=== PATIENT | male | born 1990 | race Hispanic/Latino ===

== ENCOUNTER 2018-11-09 14:53 | Inpatient (IN) | payer SELFPAY ==
[~2018-11-09] VITALS: Ht 167.6 cm; Wt 94.8 kg
[2018-11-09] MEDS ORDERED: FAMOTIDINE/PF 20 MG/2 ML VIAL IV ONE (15:24)
[2018-11-09] MEDS ORDERED: HYOSCYAMINE SULFATE 0.125 MG TAB.SUBL SL ONE (15:24)
[2018-11-09] MEDS ORDERED: ONDANSETRON HCL 4 MG/2 ML VIAL ONE (15:24)
[2018-11-09 15:33] LABS: APPEARANCE,URINE Clear (CLEAR); BILIRUBIN,URINE Negative (NEGATIVE); COLOR,URINE Yellow (YELLOW); GLUCOSE, URINE (UA) Negative (NEGATIVE); KETONES,URINE Negative (NEGATIVE); LEUKOCYTE ESTERASE ,URINE Negative (NEGATIVE); NITRATE,URINE Negative (NEGATIVE); OCCULT BLOOD,URINE Negative (NEGATIVE); PH,URINE 6.5 (5.0-8.0); PROTEIN,URINE Negative (NEGATIVE)
[2018-11-09 15:40] LABS: CREATININE 1.1 mg/dL (0.5-1.5); POTASSIUM 4.1 mmol/L (3.5-5.1)
[2018-11-09 15:45] LABS: ALBUMIN 4.4 g/dL (3.5-5.0); BILIRUBIN,DIRECT 0.1 mg/dL (0.0-0.3); BILIRUBIN,TOTAL 0.8 mg/dL (0.2-1.0); TOTAL PROTEIN, SERUM 8.1 g/dL (6.0-8.3)
[2018-11-09 15:58] LABS: AMPHET/METH SCREEN,URINE NEGATIVE (NEGATIVE); BARBITURATE SCREEN, URINE NEGATIVE (NEGATIVE); BENZODIAZEPINES SCREEN,URINE NEGATIVE (NEGATIVE); CANNABINOID SCREEN,URINE NEGATIVE (NEGATIVE); COCAINE SCREEN,URINE NEGATIVE (NEGATIVE); OPIATE SCREEN,URINE NEGATIVE (NEGATIVE); PHENCYCLIDINE SCREEN,URINE NEGATIVE (NEGATIVE)
[2018-11-09] MEDS ORDERED: SODIUM CHLORIDE 0.9% 1000ML 2,000 ML IV ONE (16:25)
[2018-11-09] MEDS ORDERED: MORPHINE SULFATE 4 MG/1ML SYG ONE ×2 (16:29→19:45)
[2018-11-09 16:38] LABS: BASOPHILS % (AUTO) 0.3 % (0.0-5.0); EOSINOPHILS % (AUTO) 0.6 % (0.0-8.0); HEMATOCRIT 47.3 % (42-54); LYMPHOCYTES % (AUTO) 10.2 % (21.0-51.0); MEAN CORPUSCULAR HEMOGLOBIN 30.8 pg (27.0-33.0); MEAN CORPUSCULAR HGB CONC 34.2 g/dL (32.0-36.0); MEAN CORPUSCULAR VOLUME 90.2 fL (79-99); MONOCYTES % (AUTO) 3.8 % (3.0-13.0); NEUTROPHILS % (AUTO) 85.1 % (40.0-77.0); NUCLEATED RED BLOOD CELLS 0.1 % (0.0-0.19); PLATELET COUNT (AUTO) 229 K/uL (130-400); RED BLOOD CELL COUNT(AUTO) 5.24 MIL/uL (4.50-6.20); RED CELL DISTRIBUTION WIDTH 13.1 % (11.0-15.5); WHITE BLOOD COUNT (AUTO) 10.9 K/uL (4.8-10.8)
[2018-11-09] MEDS ORDERED: MORPHINE SULFATE 2 MG/ML 1ML SYG IV PRN (18:45)
[2018-11-09] MEDS ORDERED: DIAZEPAM 5 MG/ML 2 ML SYG IV PRN (18:45)
[2018-11-09] MEDS ORDERED: MORPHINE SULFATE 4 MG/1ML SYG IV PRN (18:45)
[2018-11-09] MEDS: SODIUM CHLORIDE 0.9% 1000ML 1,000 ML IV SCH (18:45)
[2018-11-09] MEDS: PROMETHAZINE HCL 25 MG/ML 1ML AMPULE IVPB SCH (18:45)
[2018-11-09] MEDS ORDERED: ACETAMINOPHEN 325 MG TAB PO PRN ×2 (18:45)
[2018-11-09] MEDS ORDERED: SODIUM CHLORIDE 0.9% 1000ML 1,000 ML IV ONE (19:46)
[2018-11-09 21:35] VITALS: BP 152/97
--- NOTE | 2018-11-09 22:00 | NUR ---
ADMIT PT ADMITTED TO ROOM 401, AAOX3. DENIES ANY ABDOMINAL PAINS AT THIS TIME. ADMISSION CARED ONE. ADMISSION DATA BASE COMPLETED. IVF FROM ER OF [facility] CONTINUED REGULATED AT 100CC/HR. INSTRUCTED TO BE NPO. ORIENTED TO ROOM AND UNIT. RE-ITERATED FALL PRECAUTIONS. IN FOR MORE CARE AND MANAGEMENT. Addendum: 11/10/18 at 0028 by DIXIE MICHELLE RN RN Amended: Links added.
[2018-11-09] MEDS: ENOXAPARIN SODIUM 30 MG/0.3 ML SQ SCH (22:25)
[2018-11-09] MEDS: FAMOTIDINE/PF 20 MG/2 ML VIAL IV SCH (22:25)
[2018-11-09] MEDS ORDERED: PHARMACY COMMUNICATION MISC PRN (23:00)
[2018-11-09] MEDS ORDERED: ONDANSETRON HCL 4 MG/2 ML VIAL IV PRN (23:00)
[2018-11-09] MEDS ORDERED: CHLORDIAZEPOXIDE HCL 25 MG CAP PO PRN ×2 (23:00)
[2018-11-09] MEDS ORDERED: LORAZEPAM 2 MG/ML 1 ML VIAL IVP PRN ×2 (23:00)
[2018-11-09 23:37] LABS: ALCOHOL, BLOOD < 3 mg/dL (0-10); PHOSPHORUS 3.3 mg/dL (2.5-4.9)
[2018-11-09 23:47] VITALS: BP 116/71
[2018-11-10] MEDS ORDERED: RANI-662 PO (01:43)
--- NOTE | 2018-11-10 02:00 | NUR ---
ROUNDS PT RESTING WELL, FAIRLY ASLEEP WITH RESPIRATIONS EVEN AND UNLABORED. NO NOTED DISTRESS. KEPT UNDISTURBED FOR NOW.CALL LIGHT WITHIN REACH. WILL MONITOR PT.
[2018-11-10] MEDS: PROMETHAZINE HCL 25 MG/ML 1ML AMPULE IVPB SCH (02:49)
[2018-11-10 03:37] VITALS: BP 128/62
[2018-11-10] MEDS: SODIUM CHLORIDE 0.9% 1000ML 1,000 ML IV SCH (05:03)
--- NOTE | 2018-11-10 05:03 | NUR ---
ROUNDS PT RESTING WELL, NO CONCERNS VERBALIZED. NO DISTRESS NOTED. NEW IV BAG HUNG. KEPT COMFORTABLE IN BED. KEPT NPO. FOR MORE CARE.
[2018-11-10 07:54] VITALS: BP 113/68
[2018-11-10] MEDS ORDERED: PROMETHAZINE HCL 25 MG/ML 1ML AMPULE IVPB PRN (08:45)
[2018-11-10] MEDS ORDERED: FOLIC ACID 1 MG TABLET PO SCH (09:00)
[2018-11-10] MEDS ORDERED: MULTIVITAMIN TABLET PO SCH (09:00)
[2018-11-10] MEDS ORDERED: THIAMINE HCL 100 MG, FOLIC ACID 1 MG, M.V.I. IV [ADULT] 10 ML in SODIUM CHLORIDE 0.9% 1... IV SCH (09:00)
[2018-11-10] MEDS ORDERED: THIAMINE HCL 100 MG/ML 2ML VIAL IM SCH (09:00)
[2018-11-10] MEDS: FAMOTIDINE/PF 20 MG/2 ML VIAL IV SCH ×2 (09:10→20:28)
[2018-11-10] MEDS: ENOXAPARIN SODIUM 30 MG/0.3 ML SQ SCH (09:10)
[2018-11-10] MEDS ORDERED: ONDANSETRON HCL 4 MG/2 ML VIAL IVP PRN (10:45)
[2018-11-10 10:52] VITALS: BP 121/70
--- NOTE | 2018-11-10 11:05 | NUR ---
INITIAL MET W PT AND SPOUSE, AAOX3, INDP OF ADLS, NO DME, NOT CURRENTLY EMPLOYED, NOT CURRENTLY WITH A DRIVERS LICENSE, LIVES W SPOUSE WHO WILL PROVIDE TRANSPORT; FORMER PT OF [facility], STATES WAS THERE OVER A YEARS AGO. COUNCESSLLED ETOH CESSATION AND RETURN TO [facility] FOR FOLLWO UP. [employer] [employer] DSICUSSED. CM WILL FOLLOW. Addendum: 11/10/18 at 1655 by PILAR HERRERA RN CM Amended: Links added.
[2018-11-10 11:13] LABS: HEMATOCRIT 41.6 % (42-54); MEAN CORPUSCULAR HGB CONC 34.2 g/dL (32.0-36.0); MEAN CORPUSCULAR VOLUME 90.6 fL (79-99); NUCLEATED RED BLOOD CELLS 0.1 % (0.0-0.19); PLATELET COUNT (AUTO) 189 K/uL (130-400); RED BLOOD CELL COUNT(AUTO) 4.59 MIL/uL (4.50-6.20); RED CELL DISTRIBUTION WIDTH 12.6 % (11.0-15.5); WHITE BLOOD COUNT (AUTO) 6.1 K/uL (4.8-10.8)
[2018-11-10 11:24] LABS: CREATININE 1.1 mg/dL (0.5-1.5); POTASSIUM 4.3 mmol/L (3.5-5.1)
[2018-11-10] MEDS: LACTATED RINGERS 1000ML 1,000 ML IV SCH ×2 (15:52→23:31)
[2018-11-10 16:00] VITALS: BP 112/63
[2018-11-10 19:30] VITALS: BP 108/61
[2018-11-10] MEDS: ATORVASTATIN CALCIUM 20 MG TABLET PO SCH (20:28)
--- NOTE | 2018-11-10 20:30 | NUR ---
MEDS SHIFT ASSESSMENT DONE, PLEASE REFER TO CPOE. DUE MEDS ADMINISTERED, TOLERATED WELL. KEPT RESTED AND COMFORTABLE. ENCOURAGED TO REST AND SLEEP. CALL LIGHT WITHIN REACH. WILL MONITOR PT. Addendum: 11/10/18 at 2359 by DIXIE MICHELLE RN RN Amended: Links added.
--- NOTE | 2018-11-10 23:30 | NUR ---
ROUNDS PT RESTING WELL. NO DISTRESS NOTED. NO CONCERNS VERBALIZED. NEW IV BAG HUNG. PCP IN TO CHECK V/S, STABLE. ENCOURAGED TO SLEEP.
[2018-11-11] VITALS: BP 118/62
--- NOTE | 2018-11-11 02:00 | NUR ---
ROUNDS PT RESTING WELL, FAIRLY ASLEEP WITH RESPIRATIONS EVEN AND UNLABORED. NO NOTED DISTRESS. KEPT UNDISTURBED FOR NOW. WILL CONTINUE TO MONITOR. CALL LIGHT WITHIN REACH.
[2018-11-11 04:00] VITALS: BP 108/68
[2018-11-11 04:35] LABS: MEAN CORPUSCULAR HEMOGLOBIN 30.5 pg (27.0-33.0); MEAN CORPUSCULAR VOLUME 89.5 fL (79-99); PLATELET COUNT (AUTO) 200 K/uL (130-400); RED CELL DISTRIBUTION WIDTH 12.8 % (11.0-15.5); WHITE BLOOD COUNT (AUTO) 6.9 K/uL (4.8-10.8)
[2018-11-11 05:08] LABS: CREATININE 1.1 mg/dL (0.5-1.5); POTASSIUM 3.6 mmol/L (3.5-5.1)
--- NOTE | 2018-11-11 06:00 | NUR ---
ROUNDS PT STILL FAIRLY ASLEEP. NO DISTRESS NOTED. KEPT UNDISTURBED. NEW IV BAG HUNG. FOR MORE CARE.
[2018-11-11] MEDS: LACTATED RINGERS 1000ML 1,000 ML IV SCH ×3 (06:05→19:30)
[2018-11-11 07:40] VITALS: BP 111/59
[2018-11-11] MEDS: ENOXAPARIN SODIUM 30 MG/0.3 ML SQ SCH (08:42)
[2018-11-11] MEDS: FAMOTIDINE/PF 20 MG/2 ML VIAL IV SCH ×2 (08:42→20:16)
[2018-11-11 11:00] VITALS: BP 114/53
[2018-11-11 15:53] VITALS: BP 109/73
[2018-11-11] MEDS: MAGNESIUM 2GM PREMIX 50ML 50 ML IV PRN (16:30)
[2018-11-11 19:30] VITALS: BP 127/67
[2018-11-11] MEDS: ATORVASTATIN CALCIUM 20 MG TABLET PO SCH (20:16)
--- NOTE | 2018-11-11 20:20 | NUR ---
MEDS SHIFT ASSESSMENT DONE, PLEASE REFER TO CHART. DUE MEDS ADMINISTERED, TOLERATED. KEPT RESTED ION BED. KEPT NPO. WILL MONITOR PT. CALL LIGHT WITHIN REACH. Addendum: 11/12/18 at 0031 by DIXIE MICHELLE RN RN Amended: Links added.
[2018-11-12] VITALS (7 sets, daily range): BP systolic 101–138; BP diastolic 60–85
[2018-11-12] MEDS: LACTATED RINGERS 1000ML 1,000 ML IV SCH ×5 (01:00→22:06)
--- NOTE | 2018-11-12 02:00 | NUR ---
ROUNDS PT RESTING WELL, NO CONCERNS VERBALIZED. NO DISTRESS NOTED. KEPT COMFORTABLE IN BED. WILL MONITOR PT.
[2018-11-12 05:39] LABS: HEMATOCRIT 40.3 % (42-54); MEAN CORPUSCULAR HEMOGLOBIN 31.1 pg (27.0-33.0); MEAN CORPUSCULAR HGB CONC 34.7 g/dL (32.0-36.0); MEAN CORPUSCULAR VOLUME 89.7 fL (79-99); NUCLEATED RED BLOOD CELLS 0.1 % (0.0-0.19); PLATELET COUNT (AUTO) 198 K/uL (130-400); RED BLOOD CELL COUNT(AUTO) 4.49 MIL/uL (4.50-6.20); WHITE BLOOD COUNT (AUTO) 5.8 K/uL (4.8-10.8)
[2018-11-12 05:50] LABS: MAGNESIUM 1.7 mg/dL (1.80-2.40); POTASSIUM 3.7 mmol/L (3.5-5.1)
[2018-11-12] MEDS: MAGNESIUM 2GM PREMIX 50ML 50 ML IV PRN (06:03)
[2018-11-12] MEDS: FAMOTIDINE/PF 20 MG/2 ML VIAL IV SCH ×2 (08:15→20:40)
[2018-11-12] MEDS: ENOXAPARIN SODIUM 30 MG/0.3 ML SQ SCH (08:16)
[2018-11-12] MEDS ORDERED: ACETAMINOPHEN 325 MG TAB PO PRN (15:45)
[2018-11-12] MEDS ORDERED: HYDROCODONE/ACETAMINOPHEN 5/325 MG TAB PO PRN (15:45)
[2018-11-12] MEDS: ATORVASTATIN CALCIUM 20 MG TABLET PO SCH (20:41)
[2018-11-13 03:43] VITALS: BP 120/74
[2018-11-13] MEDS: LACTATED RINGERS 1000ML 1,000 ML IV SCH (04:13)
[2018-11-13 06:04] LABS: HEMATOCRIT 40.3 % (42-54); MEAN CORPUSCULAR HEMOGLOBIN 31.3 pg (27.0-33.0); MEAN CORPUSCULAR HGB CONC 35.1 g/dL (32.0-36.0); MEAN CORPUSCULAR VOLUME 89.2 fL (79-99); PLATELET COUNT (AUTO) 209 K/uL (130-400); RED BLOOD CELL COUNT(AUTO) 4.52 MIL/uL (4.50-6.20); RED CELL DISTRIBUTION WIDTH 12.7 % (11.0-15.5); WHITE BLOOD COUNT (AUTO) 5.4 K/uL (4.8-10.8)
[2018-11-13 06:24] LABS: CREATININE 1.1 mg/dL (0.5-1.5); MAGNESIUM 1.7 mg/dL (1.80-2.40); POTASSIUM 3.8 mmol/L (3.5-5.1)
[2018-11-13] MEDS: MAGNESIUM 2GM PREMIX 50ML 50 ML IV PRN (06:50)
[2018-11-13 07:30] VITALS: BP 136/90
[2018-11-13] MEDS: FAMOTIDINE/PF 20 MG/2 ML VIAL IV SCH (08:49)
[2018-11-13] MEDS: ENOXAPARIN SODIUM 30 MG/0.3 ML SQ SCH (08:49)
--- NOTE | 2018-11-13 11:20 | NUR ---
DISCHARGE DISCHARGE TEACHING DONE WITH PATIENT USING TEACHBACK METHOD, VERBALIZED UNDERSTANDING. PT AWARE OF NEED TO ATTEND [facility] FOR REFERRAL FOR GI. NO NEW PRESCRIPTIONS. TEACHING DONE ON CLEAR LIQUID DIET, FULL LIQUID DIET AND SOFT DIET. IV REMOVED, CATH TIP INTACT. PENDING TO BE TRANSFERRED OUT VIA PRIVATE VEHICLE.
== END 2018-11-13 11:40 | disposition home or self-care (01) | DRG 440 ==
LOC: EDH 14:53 → EDHIP 14:54 → 4BH 20:48 → 4AH 21:25
PROVIDERS: ADMIT Internal Medicine; ATTEND Internal Medicine
DX: K85.90 Acute pancreatitis without necrosis or infection, unspecified (principal); E87.6 Hypokalemia; K76.0 Fatty (change of) liver, not elsewhere classified; F17.210 Nicotine dependence, cigarettes, uncomplicated; E66.9 Obesity, unspecified; E83.42 Hypomagnesemia; Z68.34 Body mass index [BMI] 34.0-34.9, adult
CPT/HCPCS: 36415; 74176; 80048; 80061; 80076; 80305; 81003; 82150; 83690; 83735; 84100; 85025; 85027; G0378; G0480; J1650; J2270; J2405; J2550; J3411; J3475; J3490; J7030; J7120

== ENCOUNTER 2020-07-30 00:08 | Emergency (ER) | payer OTHER ==
[~2020-07-30 00:08] MED LIST: RANI-662 PO
[2020-07-30] MEDS ORDERED: LIDOCAINE HCL 1% 20 ML VIAL ONE (00:31)
[2020-07-30] MEDS ORDERED: LIDOCAINE HCL 2% VISCOUS 15 ML UDCUP ONE (00:32)
[2020-07-30] MEDS ORDERED: AMOX/CLAV 875/125MG TAB PO ONE (04:09)
== END 2020-07-30 04:56 | disposition home or self-care (01) ==
LOC: EDH 00:08
DX: S01.412A Laceration without foreign body of left cheek and temporomandibular area, initial encounter (principal); F19.10 Other psychoactive substance abuse, uncomplicated; X58.XXXA Exposure to other specified factors, initial encounter; Y93.89 Activity, other specified; Y92.098 Other place in other non-institutional residence as the place of occurrence of the external cause; Y99.8 Other external cause status
CPT/HCPCS: 12011; 70450